=== PATIENT | male | born 1985 | race Two or more races ===

== ENCOUNTER 2019-08-25 16:17 | Observation (INO) | payer OTHER ==
[~2019-08-25] VITALS: Ht 193 cm; Wt 89.8 kg
--- NOTE | 2019-08-25 17:44 | REP ---
Clinical: Pain after excessive exercise. Technique: AP and lateral views of the left tibia / fibula. Findings: See structures, joint spaces, and surrounding soft tissues are normal. No acute fracture dislocation. No periosteal reaction. No radiographic evidence for stress fracture. Impression: Normal examination. Electronically Signed by Rudolph Martinez MD 08/25/2019 05:35 P
[2019-08-25 18:07] LABS: BASO % 0.5 % (0.0-1.0); EOS # 0.1 10^3/uL (0.0-0.5); EOS % 1.7 % (0.0-3.0); HEMATOCRIT 42.4 % (42.0-52.0); LYMPH # 2.1 10^3/uL (1.5-5.0); LYMPH % 33.2 % (24.0-44.0); MEAN CORPUSCULAR HEMOGLOBIN 27.3 pg (27.0-33.0); MEAN CORPUSCULAR VOLUME 82.8 fl (80.0-96.0); MONO # 0.5 10^3/uL (0.0-0.8); MONO % 8.3 % (0.0-5.0); NEUTROPHILS # 3.6 10^3/uL (1.5-8.5); PLATELET COUNT, AUTOMATED 135 10^3/uL (150-450); RED BLOOD COUNT 5.12 10^6/uL (4.30-6.10); WHITE BLOOD COUNT 6.4 10^3/uL (4.0-10.0)
[2019-08-25] MEDS ORDERED: KETOROLAC 30 MG/ML 1ML VIAL IV ONE (18:30)
[2019-08-25] MEDS ORDERED: NS 1,000 ML IV ONE ×2 (19:15)
[2019-08-25] MEDS ORDERED: MORPHINE 4 MG/ML 1ML VIAL/SYRINGE (J2270) IV ONE (20:00)
--- NOTE | 2019-08-25 21:02 | HPEPDOC ---
[facility] Medical History & Physical Date of Admission Aug 25, 2019 Date of Service: Aug 25, 2019 History and Physical CHIEF COMPLAINT: LE pain HISTORY OF PRESENT ILLNESS: Patient is 33M with no significant PMH presents to the ER with complaints of LE pain, worse on the L. side. He is in the and recently had a Ruck March on Monday for 12 miles and has had pain since then. Pain is b/l but worse on the L. side with swelling on LLE with pain along the lateral edge of mcneill with flexion. He states that the pain did not go away and got worse as he continues to walk. With ambulation, pain radiates from lateral mcneill down to his L. ankle. He also has calf pain on the R. side as well but only with walking. Reports mild numbness to the lateral mcneill where the pain is as well. Otherwise denies any other complaints including chest pain, SOB, fever or chills. Noted to have CK >8000 in ER. Due to concern for possible early compartment syndrome, ortho was called for evaluation. PAST MEDICAL HISTORY: Refer to [facility] PAST SURGICAL HISTORY: None SOCIAL HISTORY: Denies tobacco, alcohol or illicit drug use. FAMILY HISTORY: Reviewed. None reported. ALLERGIES: Please see below. REVIEW OF SYSTEMS: 10 point review of system negative except as stated in HPI HOME MEDICATIONS: Please see below. PHYSICAL EXAMINATION: General: No acute distress, Alert Eyes: Normal sclera, EOMI HENT: Atraumatic Cardiovascular: Normal rate, normal rhythm. Pulmonary: Clear to auscultation b/l, no wheezing GI: Soft, nontender, nondistended Skin/Extremities: Warm and dry. LLE mild to moderate swelling compare to right. Tender to palpation over b/l calf and lateral mcneill of LLE. Pulses intact and strong b/l. No discoloration of extremities appreciated. Neuro: CN grossly intact. No focal deficits. Strengths equal b/l. Psych: oriented x 3 LABORATORY DATA: See below. IMAGING: LLE Tib/fib XR- normal examination. MICROBIOLOGY: Please see below. ASSESSMENT AND PLAN: 1. Rhabdo 2/2 prolong exertion - getting 2 IVF boluses in ER follow by continuous IVF infusion. - LE swelling, pulses intact b/l. To be evaluated by Ortho as well. - Monitor CK and kidney function. - Advised to stay off leg as much as possible. Pain control. DVT ppx: HSQ Code status: Full code Vital Signs Vital Signs Date Time Temp Pulse Resp B/P (MAP) Pulse Ox O2 Delivery O2 Flow Rate FiO2 08/25/19 20:27 18 08/25/19 19:11 97.9 52 135/76 (95) 100 Room Air Laboratory Data Labs 24H Laboratory Tests 2 08/25/19 17:03: Immature Granulocyte % (Auto) 0.3, Neutrophils (%) (Auto) 56.0, Lymphocytes (%) (Auto) 33.2, Monocytes (%) (Auto) 8.3H, Eosinophils (%) (Auto) 1.7, Basophils (%) (Auto) 0.5, Neutrophils # (Auto) 3.6, Lymphocytes # (Auto) 2.1, Monocytes # (Auto) 0.5, Eosinophils # (Auto) 0.1, Basophils # (Auto) 0.0, Nucleated Red Blood Cells % (auto) 0.0, Lactic Acid Level 1.4, Total Creatine Kinase 8256H 08/25/19 18:02: POC Glucose (Misc Panel) 67L, POC Sodium (Misc Panel) 144, POC Potassium (Misc Panel) 3.1L, POC Chloride (Misc Panel) 105, POC Total CO2 (Misc Panel) 23.0, POC Blood Urea Nitrogen (Misc Panel 11, POC Ionized Calcium (Misc Panel) 4.3L, POC Creatinine (Misc Panel) 1.1, POC Hematocrit (Misc Panel) 36.0L CBC/BMP Laboratory Tests 08/25/19 17:03 Home Medications No Active Prescriptions or Reported Meds Allergies Coded Allergies: No Known Allergies (Unverified , 08/25/19) A-FIB/CHADSVASC A-FIB History Current/History of A-Fib/PAF?: No MIRIAN NGUYEN MD Aug 25, 2019 21:02
[2019-08-25 21:48] VITALS: BP 137/76
[2019-08-25] MEDS: HEPARIN SOD (PORCINE) 5000UNITS/ML VIAL (J1644 PER 1000UNITS) SC SCH (22:34)
[2019-08-25] MEDS: NS 1,000 ML IV SCH (22:34)
[2019-08-25] MEDS: ACETAMINOPHEN TAB 650MG DOSE (2X325MG) PO PRN (22:34)
[2019-08-26] MEDS: NS 1,000 ML IV SCH (05:00)
[2019-08-26] MEDS: HEPARIN SOD (PORCINE) 5000UNITS/ML VIAL (J1644 PER 1000UNITS) SC SCH (05:57)
[2019-08-26 06:00] VITALS: BP 154/99
[2019-08-26 06:44] LABS: HEMATOCRIT 41.3 % (42.0-52.0); HEMOGLOBIN 13.5 g/dl (13.5-17.5); MEAN CORPUSCULAR HEMOGLOBIN 27.2 pg (27.0-33.0); MEAN CORPUSCULAR HGB CONC 32.7 g/dl (32.0-36.5); MEAN CORPUSCULAR VOLUME 83.3 fl (80.0-96.0); PLATELET COUNT, AUTOMATED 120 10^3/uL (150-450); RED BLOOD COUNT 4.96 10^6/uL (4.30-6.10)
[2019-08-26 07:02] LABS: BLOOD UREA NITROGEN 12 MG/DL (7-18); CALCIUM LEVEL 8.3 MG/DL (8.5-10.1); CARBON DIOXIDE LEVEL 29 MEQ/L (21-32); CHLORIDE LEVEL 108 MEQ/L (98-107); CREATININE FOR GFR 1.19 MG/DL (0.70-1.30); GLOMERULAR FILTRATION RATE > 60.0 (>60); GLUCOSE, FASTING 83 MG/DL (70-100); SODIUM LEVEL 140 MEQ/L (136-145)
[2019-08-26] MEDS: ACETAMINOPHEN TAB 650MG DOSE (2X325MG) PO PRN (10:16)
[2019-08-26 10:38] LABS: CPK CREATINE PHOSPHOKINASE 5696 U/L (39-308)
--- NOTE | 2019-08-26 10:59 | DS.PDOC ---
Discharge Summary General Date of Admission Aug 25, 2019 at 20:33 Date of Discharge 08/26/19 Discharge Summary CHIEF COMPLAINT: LE pain Final diagnosis Elevated CK Abnormalities HISTORY OF PRESENT ILLNESS: Patient is 33M with no significant PMH presents to the ER with complaints of LE pain, worse on the L. side. He is in the and recently had a Ruck March on Monday for 12 miles and has had pain since then. Pain is b/l but worse on the L. side with swelling on LLE with pain along the lateral edge of mcneill with flexion. He states that the pain did not go away and got worse as he continues to walk. With ambulation, pain radiates from lateral mcneill down to his L. ankle. He also has calf pain on the R. side as well but only with walking. . He this morning. States that he has been feeling fine and his pain has decreased, but he still has mild tenderness because of fatigue . His CK levels and his kidney was monitored and his CK levels have been trending nicely down from more than [id number]. He is maintaining good oral intake and has been advised that if he continues to drink normally. His CK will be normalized in the day or so. He has been advised to follow with the PCP in the next 24 hours to 72 hours to get repeat CK level done. He has been advised to maintain a good hydration. X-ray of the mcneill was done which did not show any fracture or any other abnormality. He is medically optimized for discharge and he also wants to go home. He has been advised to avoid any strenuous activity over the next one week before his PCP clears him for regular strenuous activity which is required for his work PHYSICAL EXAMINATION: General: No acute distress, Alert Eyes: Normal sclera, EOMI HENT: Atraumatic Cardiovascular: Normal rate, normal rhythm. Pulmonary: Clear to auscultation b/l, no wheezing GI: Soft, nontender, nondistended Skin/Extremities: Pulses intact and strong b/l. No discoloration of extremities appreciated. , No swelling appreciated. No edema, no warmth, and Zoë's signs are negative Neuro: CN grossly intact. No focal deficits. Strengths equal b/l. Psych: oriented x 3 Medications As per discharge reconciliation medication list Activity as tolerated Diet. Regular, and advised to maintain good hydration Follow-up appointments. PCP in 2-3 days Condition on discharge. Patient is medically optimized for discharge Discharge disposition: Home Total time spent on this discharge including coordination of care, review of chart documentation and actual contact is around 35 minutes Vital Signs/I&Os Vital Signs Date Time Temp Pulse Resp B/P (MAP) Pulse Ox O2 Delivery O2 Flow Rate FiO2 08/26/19 06:00 98.2 57 20 154/99 (117) 100 Room Air I&O- Last 24 Hours up to 6 AM 08/26/19 06:00 Intake Total 2375 ml Output Total 200 ml Balance 2175 ml Laboratory Data Labs 24H Laboratory Tests 2 08/25/19 17:03: Immature Granulocyte % (Auto) 0.3, Neutrophils (%) (Auto) 56.0, Lymphocytes (%) (Auto) 33.2, Monocytes (%) (Auto) 8.3H, Eosinophils (%) (Auto) 1.7, Basophils (%) (Auto) 0.5, Neutrophils # (Auto) 3.6, Lymphocytes # (Auto) 2.1, Monocytes # (Auto) 0.5, Eosinophils # (Auto) 0.1, Basophils # (Auto) 0.0, Nucleated Red Blood Cells % (auto) 0.0, Lactic Acid Level 1.4, Total Creatine Kinase 8256H 08/25/19 18:02: POC Glucose (Misc Panel) 67L, POC Sodium (Misc Panel) 144, POC Potassium (Misc Panel) 3.1L, POC Chloride (Misc Panel) 105, POC Total CO2 (Misc Panel) 23.0, POC Blood Urea Nitrogen (Misc Panel 11, POC Ionized Calcium (Misc Panel) 4.3L, POC Creatinine (Misc Panel) 1.1, POC Hematocrit (Misc Panel) 36.0L 08/26/19 05:58: Nucleated Red Blood Cells % (auto) 0.0, Total Creatine Kinase 5696H, Anion Gap 3L, Glomerular Filtration Rate > 60.0, Calcium Level 8.3L CBC/BMP Laboratory Tests 08/25/19 17:03 08/26/19 05:58 Discharge Medications No Active Prescriptions or Reported Meds Allergies Coded Allergies: No Known Allergies (Unverified , 08/25/19) HAL RAUSCH MD Aug 26, 2019 10:59
--- NOTE | 2019-08-27 11:01 | IPN ---
DATE: 08/26/2019 CHIEF COMPLAINT: Left leg pain and swelling. HISTORY OF PRESENT ILLNESS: Shweta Child is a 33-year-old male who was admitted last evening for pain and swelling in the anterior compartment. He states overall this morning he is doing better. He still has some pain and swelling, but it is not as severe. He was comfortable overnight. PHYSICAL EXAMINATION: General: Well appearing, alert and oriented, in no acute distress. CV: Regular DP pulse. MUSCULOSKELETAL: There is continued moderate swelling about the anterior compartment, but it is compressible. No pain with passive stretch of the toes or ankle. Lateral and posterior compartments are soft. Normal sensation to light touch in the superficial, peroneal, deep peroneal, or peroneal distribution. IMPRESSION: Improving pain with possible injury to the tibialis anterior muscle. PLAN: At this point, the patient's symptoms are improving. I have explained to him the importance of strict elevation and ice when he returns home. He states he has followup set up on post with one of the doctors and I have suggested followup within 1-2 days to make sure that this has continued to trend in the right direction. Otherwise, I would be happy to see him at [facility] also should he have any difficulty arranging followup. Red flag symptoms were discussed such as increased swelling, pain, numbness, tingling, weakness or any other concerning features and he knows to return to the emergency room (ER) right away. All the patient's questions were answered and he was in agreement with this plan.
--- NOTE | 2019-08-27 16:52 | CR ---
DATE OF CONSULTATION: 08/25/2019 HISTORY OF PRESENT ILLNESS: This is a 33-year-old male who has had increasing pain and swelling to the left leg. Patient had recently had a long ruck april two days prior for approximately 12 miles, and has increasing pain and swelling, essentially in the anterior aspect of his legs. He has been able to walk and has been able to move his foot without significant pain; however, the swelling was continuing to escalate and he presented to the emergency room. Pain radiates essentially throughout the anterior compartment of the legs. He has no pain posteriorly. He has some mild calf pain on the right. He denies numbness or tingling. No other complaints like chest pain, shortness of breath, fevers, or chills. Patient was found to have a creatine kinase (CK) over 8000 in the emergency room (ER). PAST MEDICAL HISTORY: None. PAST SURGICAL HISTORY: None. SOCIAL HISTORY: Patient does not drink or use tobacco. ALLERGIES: No known drug allergies. MEDICATIONS: No medications. REVIEW OF SYSTEMS: 10-point review of systems is negative, except for stated in history of present illness (HPI). PHYSICAL EXAM: GENERAL: No acute distress. Awake, alert, and oriented. CARDIOVASCULAR (CV): Normal dorsalis pedis (DP) pulse on the left. ABDOMEN: Soft, nontender. MUSCULOSKELETAL: There is swelling, essentially in the anterior compartment of the leg. The lateral compartment and posterior compartments are soft and compressible. The anterior compartment is compressible but is moderately painful. There is no pain on passive stretch of the toes or ankle. Pain is actually relieved with dorsiflexion of the ankle. It is slightly increased with plantar flexion. He has normal sensation to light touch in the superficial peroneal, deep peroneal, tibial distribution. The foot is normal perfused. VITAL SIGNS: Upon admission, temperature 97.9, pulse 52, respiratory rate 12, blood pressure 135/76, pulse oximetry 100% on room air. IMAGING: Tibia-fibula x-rays are reviewed. No fracture, dislocation, or other obvious pathology. IMPRESSION: Left leg swelling and pain in the anterior compartment, reaching to the tibialis anterior tendon. PLAN: Patient does have moderate swelling; however, this does not appear to be a compartment syndrome picture. Suggest strict elevation and ice. He may have some tearing of his tibialis anterior muscle. Will keep an eye on it to make sure his symptoms are improving. Otherwise, care per medicine team.
== END 2019-08-26 11:42 | disposition home or self-care (01) ==
LOC: M ED 16:17 → M ED INP 20:33 → ENRESERV 21:08 → M MSPAV 21:48
PROVIDERS: ADMIT Student in an Organized Health Care Education/Training Program; ATTEND Internal Medicine
DX: M62.82 Rhabdomyolysis (principal); R74.8 Abnormal levels of other serum enzymes; M79.605 Pain in left leg; R22.42 Localized swelling, mass and lump, left lower limb
CPT/HCPCS: 36415; 73590; 80047; 80048; 82550; 83605; 85025; 85027; 96361; 96372; 96374; 96375; 99284; J1644; J1885; J2270

== ENCOUNTER → 2020-07-14 | Outpatient (CLI) | payer OTHER | LOC: M LABSMTC 11:12 | PROVIDERS: ATTEND Pediatrics | DX: Z11.52 Encounter for screening for COVID-19 (principal) ==

== ENCOUNTER → 2022-02-24 | Outpatient (CLI) | payer OTHER | LOC: M SOG 08:24 | PROVIDERS: ATTEND Physician Assistant | DX: M25.531 Pain in right wrist (principal) ==

== ENCOUNTER 2022-04-05 21:46 | Emergency (ER) | payer OTHER ==
[~2022-04-05] VITALS: Ht 195.6 cm; Wt 81.8 kg
[2022-04-06] MEDS ORDERED: IBUP-1022 PO (04:53)
[2022-04-06] MEDS ORDERED: KETOROLAC 60MG 2ML VIAL IM ONE (04:55)
[2022-04-06 05:01] VITALS: BP 126/76
== END 2022-04-06 05:03 | disposition home or self-care (01) ==
LOC: M ED 21:46
DX: S70.02XA Contusion of left hip, initial encounter (principal); W00.0XXA Fall on same level due to ice and snow, initial encounter; Y92.137 Garden or yard on military base as the place of occurrence of the external cause; Y93.01 Activity, walking, marching and hiking; Y99.1 Military activity
CPT/HCPCS: 72125; 72192; 73502; 96372; 99284; J1885

== ENCOUNTER → 2022-06-01 | Outpatient (CLI) | payer OTHER ==
[~2022-06-01] MED LIST: IBUP-1022 PO
== END ==
LOC: M PLAIMG 10:42
PROVIDERS: ATTEND Orthopaedic Surgery Hand Surgery
DX: M79.641 Pain in right hand (principal)

== ENCOUNTER → 2023-08-17 | Outpatient (CLI) | payer OTHER | LOC: M PLAIMG 09:40 | PROVIDERS: ATTEND Internal Medicine | DX: G43.009 Migraine without aura, not intractable, without status migrainosus (principal) ==